=== PATIENT | male | born 1980 | race Caucasian/White ===

== ENCOUNTER 2016-10-08 09:42 | Emergency (ER) | payer OTHER ==
--- NOTE | ~2016-10-08 | CT98 ---
[facility] A Service of [facility] RADIOLOGY TEXT RESULTS PATIENT: OPAL GARNICA LOCATION: SED : 84 UNIT #: [id number] AGE: [address]: BRIDGER ARNOLD SEX: M ORDER DR: [id number] [address] [id number] MR#: [id number] Acc #: [id number] NAME: OPAL GARNICA : 1980 SEX: M STUDY DATE/TIME: 10/08/2016 11:24 UNIT: SED ROOM: STUDY DESCRIPTION: CT Lumbar Spine Wo Cont Attending Physician: Bridger Arnold Ordering Physician: Bridger Arnold Primary Care Physician: Ayo Pulliam M.D. MEDICAL IMAGING REPORT This report is preliminary unless electronic signature is present. EXAM CT lumbar spine 10/08/2016 HISTORY Sharp low back pain chronic x2 years. States bad today. History of L5 fractures. No known injury. Spina bifida. TECHNIQUE CT lumbar spine performed. Bone soft tissue windows reviewed. Sagittal coronal reconstructions performed. This CT exam was performed with one or more of the following radiation dose reduction techniques: automatic exposure control, adjustment of mA and/or kV according to patient size, and iterative reconstruction. COMPARISON 06/13/2014 FINDINGS Visualized liver, spleen, pancreas, adrenal glands, kidneys, small bowel, appendix, colon, urinary bladder unremarkable. No adenopathy. Atherosclerotic arterial calcifications. Aorta normal in overall caliber. No fracture or traumatic malalignment. Vertebral body heights and intervertebral disc space heights are normal. Left L5 pars interarticularis defect. No change. Right-sided L5 laminar defect. No change. No resulting alignment abnormality. T12-L1, L1-L2, L2-L3: No disc bulge or herniation. Spinal canal diameter normal. Neural foramina patent without evidence of exiting nerve impingement. L3-L4: Very minimal posterior concentric disc bulge with some straightening of the anterior aspect of thecal sac without spinal canal [facility]. [facility] A Service of [facility] RADIOLOGY TEXT RESULTS PATIENT: OPAL GARNICA LOCATION: SED : 84 UNIT #: [id number] AGE: [address]: BRIDGER ARNOLD SEX: M ORDER DR: lopez. The L3-L4 neural foramina show mild narrowing bilaterally. Unchanged. There is no clear indication of exiting nerve impingement. L4-L5: Mild posterior concentric disc bulge. No spinal stenosis. Mild to moderate bilateral foraminal narrowing. No definite mass effect on the exiting L4 nerves. No change. L5-S1: Bony changes as above. Minimal posterior concentric disc bulge. No spinal canal narrowing. No change from prior study. Facet degenerative change. Similar in appearance to prior study. Mild foraminal narrowing with no indication of mass effect on the exiting L5 nerves. IMPRESSION 1. No significant change from 06/13/2014. Note made of the left L5 pars interarticularis defect, and right L5 laminar defect. These findings are stable. No resulting malalignment. 2. Mild posterior disc bulges as described above with minimal mass effect on thecal sac and no spinal stenosis. 3. Multilevel mild to mild/moderate foraminal narrowing as described above. Not significantly changed from prior examination with no indication of direct mass effect on the intraforaminal nerves. Dictated by... Francisco Javier Lawrence M.D. THIS IS AN ELECTRONICALLY VERIFIED REPORT Francisco Javier Lawrence M.D. at 10/09/2016 6:42 PM YAMILET/[email or web address] TD: 10/08/2016 13:04 JOB #: [id number] MEDICAL IMAGING REPORT Page 1 of 1
[~2016-10-08 09:42] MED LIST: ALBUTEROL17 GM INH; AMOXICILLIN875 MG PO; ATARAX; BENZONATATE PO; FLEXERIL10 MG; FLEXERIL10 MG PO; GRALISE1 EACH; IBUPROFEN800 MG PO; LIORESAL10 MG; MEDROL DOSEPAK4 MG PO; MOTRIN600 M1 PO; NO MEDICATIONS; NORCO1 TAB 10/3 DOB; NORCO1 TAB 10/3 PO; PERCOCET; PREDNISONE PO; PREDNISONE50 MG PO; VIBRAMYCIN100 M1 PO; VOLTAREN50 MG PO
[2016-10-08] MEDS ORDERED: BUSPAR (09:56)
[2016-10-08] MEDS ORDERED: NAPROXEN (09:56)
[2016-10-08] MEDS ORDERED: TOPROL XL (09:56)
== END 2016-10-08 13:01 | disposition home or self-care (01) ==
LOC: SED 09:42
DX: M51.16 Intervertebral disc disorders with radiculopathy, lumbar region (principal); I10 Essential (primary) hypertension; F17.210 Nicotine dependence, cigarettes, uncomplicated; Z79.899 Other long term (current) drug therapy
CPT/HCPCS: 72131; 96372; 99283; J1885